=== PATIENT | female | born 1965 | race Hispanic/Latino ===

== ENCOUNTER → 2018-04-26 | Outpatient (CLI) | payer OTHER ==
--- NOTE | 2018-04-26 10:12 | Diagnostic Imaging Report ---
PROCEDURE:ABDOMINAL ULTRASOUND COMPARISON:None. INDICATION:Epigastric abdominal pain. TECHNIQUE:Moyer scale color Doppler ultrasound abdomen FINDINGS: Imaged portions of the inferior vena cava and abdominal aorta are normal. Normal pancreas. The tail is obscured by bowel gas. Right liver span 19.5 cm. Mildly increased parenchymal echogenicity with a smooth margin. Portal vein diameter 1.1 cm; normal flow direction. Small noncalcified gallstones. Otherwise, normal gallbladder. Wall thickness 0.2 cm. Common bile duct diameter 0.4 cm. Right kidney length 13.7 cm. Left kidney length 13.2 cm. Both kidneys are normal. Splenic length is 10.4 cm. No ascites. CONCLUSION: 1. Hepatomegaly with mildly increased echogenicity in keeping with steatosis. 2. Noncalcified gallstones. Dictated by: Darryn Bee M.D. on 04/26/2018 at 10:14 Electronically approved by: Darryn Bee M.D. on 04/26/2018 at 10:14
== END ==
LOC: US 08:30
PROVIDERS: ATTEND Internal Medicine Gastroenterology
DX: R10.13 Epigastric pain (principal)
CPT/HCPCS: 76700

== ENCOUNTER → 2025-02-28 | Day surgery (SDC) | payer OTHER ==
[2025-02-22 09:40] LABS: BASOPHILS % 0.5 % (0.0-1.0); EOSINOPHILS # (AUTO) 0.2 (0.0-0.4); EOSINOPHILS % 2.6 % (0.0-6.0); HEMATOCRIT 37.9 % (34.2-44.1); HEMOGLOBIN 12.2 g/dL (12.0-16.0); LYMPHOCYTES % 23.9 % (18.0-39.1); MEAN CORPUSCULAR HEMOGLOBIN 29.8 pg (28-32); MEAN CORPUSCULAR HGB CONC 32.2 g/dL (31-35); MEAN CORPUSCULAR VOLUME 92.4 fL (81-99); MONOCYTES # (AUTO) 0.6 (0.2-0.8); MONOCYTES % 6.8 % (4.4-11.3); NEUTROPHILS # (AUTO) 5.6 (2.1-6.9); NEUTROPHILS % 65.6 % (38.7-80.0); PLATELET COUNT 300 x10e3/uL (140-360); RED CELL DISTRIBUTION WIDTH 14.5 % (11.7-14.4); WHITE BLOOD COUNT 8.54 x10e3/uL (4.8-10.8)
[2025-02-22 10:21] LABS: ANION GAP 17.6 mmol/L (8-16); CALCIUM 9.4 mg/dL (8.4-10.2); CREATININE, SERUM 0.68 mg/dL (0.57-1.11); POTASSIUM 3.6 mmol/L (3.5-5.1)
[~2025-02-28] MED LIST: ACETAMINOPHEN 1000 MG/100 ML 100 ML IV ONE; ALBUTEROL0.63 MG/3 NEB; ALLEGRA-D 24 H1 EACH PO; BACLOFEN10 MG PO; BREO ELLIPTA 11 EACH INH; CALCIUM PO; CRESTOR40 MG PO; CYMBALTA30 MG PO; EPHEDRINE SULFATE INJ 50 MG/ML VIAL ONE; ETODOLAC400 MG PO; FAMOTIDINE 20 MG/2 ML VIAL IV ONE; FENTANYL CITRATE/PF 100MCG/2 ML INJ ONE; LIDOCAINE HCL 2% LOCAL INJ 5 ML SDV VIAL INJ ONE; LOSARTAN POTAS100 MG PO; LYRICA50 MG PO; METOCLOPRAMIDE HCL 10 MG/2ML VIAL ONE; MIDAZOLAM HCL 2 MG/2 ML VIAL ONE; OMEGA 3 1,0001 EACH PO; ONDANSETRON HCL INJ 2MG/ML 2ML 2 MG/ML VIAL ONE; OZEMPIC2 MG/0.75 SC; PLAVIX75 MG PO; PROLIA60 MG/1 ML INJ; PROPOFOL IV EMULSION 10 MG/ML 20 ML VIAL ONE; SEVOFLURANE INHAL SOLN 250 ML PEN BTL ONE; VERAPAMIL ER120 MG PO; XIGDUO XR 5 MG1 EAC1 PO
[2025-02-28] MEDS: CEFAZOLIN SODIUM 2 GM ONE (06:02)
[2025-02-28] MEDS: LACTATED RINGER'S 1,000 ML ONE (06:03)
[2025-02-28 08:23] VITALS: TEMP 98.3
[2025-02-28] MEDS: HYDROCODONE/APAP 5MG-325MG TAB ONE (09:00)
[2025-02-28 10:00] VITALS: BP 165/90; PULSE 73; RESP 18; O2SAT 97
== END | disposition home or self-care (01) ==
LOC: OR 05:26
PROVIDERS: ATTEND Orthopaedic Surgery Adult Reconstructive Orthopaedic Surgery
DX: S83.261A Peripheral tear of lateral meniscus, current injury, right knee, initial encounter (principal); M17.11 Unilateral primary osteoarthritis, right knee; S39.012A Strain of muscle, fascia and tendon of lower back, initial encounter; J45.909 Unspecified asthma, uncomplicated; M81.0 Age-related osteoporosis without current pathological fracture; E11.9 Type 2 diabetes mellitus without complications; I10 Essential (primary) hypertension; E78.5 Hyperlipidemia, unspecified; M79.7 Fibromyalgia; Z71.82 Exercise counseling; X58.XXXA Exposure to other specified factors, initial encounter; Z88.6 Allergy status to analgesic agent; Z88.1 Allergy status to other antibiotic agents; Z01.810 Encounter for preprocedural cardiovascular examination; Z01.812 Encounter for preprocedural laboratory examination; Z79.85 Long-term (current) use of injectable non-insulin antidiabetic drugs; Z79.02 Long term (current) use of antithrombotics/antiplatelets; Z79.899 Other long term (current) drug therapy; Z68.33 Body mass index [BMI] 33.0-33.9, adult; Z71.3 Dietary counseling and surveillance; Z86.16 Personal history of COVID-19; Z86.73 Personal history of transient ischemic attack (TIA), and cerebral infarction without residual deficits
CPT/HCPCS: 29881; 36415 ×2; 80048; 82948; 85025; 93005; J0131; J2003; J2250; J2405; J2704; J2765; J3010; J7121